=== PATIENT | male | born 1945 | race African-American/Black ===

== ENCOUNTER 2020-12-24 18:08 | Inpatient (IN) | payer OTHER ==
[~2020-12-24] VITALS: Ht 180.3 cm; Wt 83.5 kg
--- NOTE | ~2020-12-24 | EMS ---
[address] [address] EMS Patient Care Report Name: JOSEPHINE CANDELARIA Room #: 443-P ADM IN M.R.#: [id number] Admission: 12/25/20 Attend Phys: Varsha Pedroza MD Discharge: Date of : 41 Report #: [id number] THIS REPORT FOR: //name// Report Transmitted: 12/26/2020 14:28 EMS Care Summary [place], [place]/[facility] Incident [phone] @ 12/24/2020 17:34 Incident Location [id number] [place] [address] Patient JOSEPHINE CANDELARIA Male, 75 Years 1945 Patient Address [id number] [place] [address] Patient History Stroke/CVA, Patient Allergies No known allergies, Patient Medications None Reported, Chief Complaint ABDOMINAL PAIN Disposition Transported No Lights/[place] Dispatch Reason Abdominal Pain/Problems Transported To [facility] Narrative SCENE: ON ARRIVAL PT FOUND SITTING UPRIGHT ON CHAIR IN FRONT ROOM OF ADDRESS PROVIDED. PT IS AWAKE AND ALERT WITH A GCS OF 15. PT C/O ABDOMINAL PAIN SINCE THIS MORNING. PT AMBULATORY TO EMS STRETCHER. [address] [address] EMS Patient Care Report Name: JOSEPHINE CANDELARIA Room #: 443-P ADM IN M.R.#: [id number] Admission: 12/25/20 Attend Phys: Varsha Pedroza MD Discharge: Date of : 41 Report #: [id number] AMBULANCE: VITALS MONITORED. NO CHANGES. Initial Vitals @18:02P: 60,R: 16,BP: 128/68,Pain: 2/10,GCS: 15,Revised Trauma: 12, @17:58P: 64,R: 18,BP: 138/74,Pain: 4/10,GCS: 15,Revised Trauma: 12, Assessments @17:50MENTAL:No Abnormalities,SKIN:No Abnormalities,HEENT:Head/Face: No Abnormalities,Eyes: No Abnormalities,Neck/Airway: No Abnormalities,LUNG SOUNDS:General: Other,Left Upper: No Abnormalities,Right Upper: No Abnormalities,Left Lower: No Abnormalities,Right Lower: No Abnormalities,ABDOMEN:General: Other,Left Upper: No Abnormalities,Right Upper: No Abnormalities,Left Lower: No Abnormalities,Right Lower: No Abnormalities,PELVIS//GI:No Abnormalities,EXTREMITIES:Left Arm: No Abnormalities,Right Arm: No Abnormalities,Left Leg: No Abnormalities,Right Leg: No Abnormalities,PULSE:NEURO:No Abnormalities,@18:02MENTAL:No Abnormalities,SKIN:No Abnormalities,HEENT:Head/Face: No Abnormalities,Eyes: No Abnormalities,Neck/Airway: No Abnormalities,LUNG SOUNDS:General: Other,Left Upper: No Abnormalities,Right Upper: No Abnormalities,Left Lower: No Abnormalities,Right Lower: No Abnormalities,ABDOMEN:General: Other,Left Upper: No Abnormalities,Right Upper: No Abnormalities,Left Lower: No Abnormalities,Right Lower: No Abnormalities,PELVIS//GI:No Abnormalities,EXTREMITIES:Left Arm: No Abnormalities,Right Arm: No Abnormalities,Left Leg: No Abnormalities,Right Leg: No Abnormalities,PULSE:NEURO:No Abnormalities, Impression Abdominal Pain Procedures @17:49ALS AssessmentResponse: UnchangedSucceeded@17:51StretcherResponse: Unchanged Timeline 17:31,Call Received 17:31,Dispatch Notified 17:34,Dispatched 17:36,En Route 17:46,On Scene 17:49,At Patient 17:49,ALS Assessment,Response: UnchangedSucceeded, 17:51,Stretcher,Response: Unchanged 17:55,Depart Scene 17:58,BP: 138/74 M,PULSE: 64,RR: 18 R,SPO2: Ox,ETCO2: ,BG: ,PAIN: 4,GCS: 15, 18:02,BP: 128/68 M,PULSE: 60,RR: 16 R,SPO2: Ox,ETCO2: ,BG: ,PAIN: 2,GCS: 15, [facility] [address] [place] [address] EMS Patient Care Report Name: JOSEPHINE CANDELARIA Room #: 443-P ADM IN .R.#: [id number] Admission: 12/25/20 Attend Phys: Varsha Pedroza MD Discharge: Date of : 41 Report #: [id number] 18:16,At Destination 18:18,Call Closed Disclaimer v1.1 Copyright 2020 [employer] This EMS Care Summary contains data elements from the applicable legal record (which may be displayed differently). It is designed to provide pertinent information for the following purposes: continuity of care, clinical quality, and state data reporting. The complete legal record is available to ED staff and administrators of the receiving hospital in [facility]'s Patient Tracker. All data is provided "as is."
[2020-12-24 18:10] VITALS: BP 143/66
[2020-12-24 19:12] LABS: ABSOLUTE NEUTROPHILS 3.2 thou/uL (1.4-8.2); BASOPHILS 0.4 % (0.0-2.0); HEMATOCRIT 36.4 % (42.0-52.0); HEMOGLOBIN 12.2 gm/dL (14.0-18.0); LYMPHOCYTES 30.6 % (24.0-44.0); MCH 29.3 pg (26.0-34.0); MCHC 33.6 g/dL (28.0-37.0); MCV 87.2 fL (80.0-100.0); MONOCYTES 9.7 % (1.0-8.0); PLATELET COUNT 179 thou/uL (150-400); POLYS 58.3 % (36.0-66.0); RBC 4.17 mil/uL (4.50-6.00); RDW 14.8 % (10.5-14.5); WBC 5.6 thou/uL (4.0-11.0)
[2020-12-24 19:17] LABS: CALCIUM 9.5 mg/dL (8.5-10.1); CREATININE 1.9 mg/dL (0.7-1.3)
[2020-12-24 19:23] LABS: ALBUMIN 3.8 g/dL (3.4-5.0); TOTAL BILIRUBIN 0.4 mg/dL (0.2-1.0); TOTAL PROTEIN 7.8 g/dL (6.4-8.2)
[2020-12-24 19:48] LABS: URINE BILIRUBIN NEGATIVE (Negative); URINE BLOOD TRACE (Negative); URINE CLARITY CLEAR; URINE COLOR YELLOW; URINE GLUCOSE-RANDOM* NEGATIVE (Negative); URINE KETONES NEGATIVE (Negative); URINE LEUKOCYTES-REFLEX NEGATIVE (Negative); URINE NITRITE-REFLEX NEGATIVE (Negative); URINE PROTEIN (DIPSTICK) NEGATIVE (Negative); URINE SPECIFIC GRAVITY 1.015 (1.005-1.035); URINE UROBILINOGEN 0.2 E.U./dl (0.2-1.0)
[2020-12-25 09:54] LABS: CALCIUM 8.5 mg/dL (8.5-10.1); CREATININE 1.2 mg/dL (0.7-1.3)
--- NOTE | 2020-12-25 12:23 | EKG ---
[place] [address] [facility] [place] [address] ELECTROCARDIOGRAM REPORT Name: JOSEPHINE CANDELARIA Room #: 170-7 ADM IN M.R.#: [id number] Admission: 12/25/20 Attend Phys: Ori Ku MD Discharge: Date of : 41 Report #: [id number] [facility] ED Test Date: 2020-12-24 Test Time: 20:34:14 Pat Name: JOSEPHINE CANDELARIA Department: Room: 170 Gender: M [employer]ck[employer]: [employer]aco : 1945 Requested By: Luis Josue Order Number: [id number] MD: Mg Cain Measurements Intervals [place] Rate: 81 P: 60 RI: 227 QRS: -14 QRSD: 169 T: 99 QT: 441 QTc: 512 Interpretive Statements Sinus rhythm Atrial premature complexes Prolonged RI interval Left atrial enlargement Left bundle branch block No previous ECG available for comparison Electronically Signed On 12-25-2020 12:22:55 CDT by Mg Cain [email or web address] <ELECTRONICALLY SIGNED> By: Mg Cain MD 12/25/20 1222 33 2034 MD WILLY Major
[2020-12-25] MEDS ORDERED: HYDROCHLOROTHIA25 M1 PO (13:23)
[2020-12-25] MEDS ORDERED: TERAZOSIN HCL10 MG PO (13:23)
[2020-12-25] MEDS ORDERED: K-DUR10 MEQ PO (13:23)
[2020-12-25] MEDS ORDERED: BYSTOLIC10 MG PO (13:23)
[2020-12-25] MEDS ORDERED: CARVEDILOL12.5 MG PO (13:24)
[2020-12-25] MEDS ORDERED: NORVASC5 M1 PO (13:24)
[2020-12-25 19:15] VITALS: BP 118/71
[2020-12-25 19:21] VITALS: BP 118/71
[2020-12-25 21:00] VITALS: BP 143/76
--- NOTE | 2020-12-26 02:09 | NUR ---
PT ARRIVED FROM THE ER. A&OX4 SPEECH IMPEDIMENT FROM PRIOR CVA. ADMISSION DONE AND PT ORIENTED TO THE UNIT IV INTACT AND FLUIDS INFUSING. PT UP WITH SBA TO THE BATHROOM. NPO. CLEAR LUNGS SOUNDS. NO FUTHER SIGN OF DISCOMFORT WILL CONT TO MONITOR.
[2020-12-26 05:03] VITALS: BP 124/59
[2020-12-26 05:26] LABS: HEMATOCRIT 38.1 % (42.0-52.0); HEMOGLOBIN 12.8 gm/dL (14.0-18.0); MCH 29.3 pg (26.0-34.0); MCHC 33.5 g/dL (28.0-37.0); MCV 87.5 fL (80.0-100.0); RBC 4.36 mil/uL (4.50-6.00); RDW 14.3 % (10.5-14.5); WBC 5.8 thou/uL (4.0-11.0)
[2020-12-26 05:54] LABS: CALCIUM 9.4 mg/dL (8.5-10.1); CREATININE 1.5 mg/dL (0.7-1.3); POTASSIUM 3.1 mmol/L (3.5-5.1)
[2020-12-26 07:51] VITALS: BP 129/76
--- NOTE | 2020-12-26 11:07 | NUR ---
ASSUMED PT CARE THIS AM. PT A&OX4, ABLE TO MAKE NEEDS KNOWN. PATIENT REPORTING PAIN OF A 3/10, AT GOAL PAIN NUMBER. PATIENT REPORTING NO NUMBNESS OR TINGLING. IV PATENT, FLUIDS INFUSING. PATIENT REMAINS CONTINENT, UP TO BATHROOM WITH STANDBY ASSIST. PATIENT REMAINS NPO. FALL PRECAUTIONS ARE IN PLACE, CALL LIGHT WITHIN REACH.
--- NOTE | 2020-12-26 13:50 | NUR ---
ASSESSMENT: CM REVIEWED CHART AND SPOKE WITH PATIENT AT THE BEDSIDE. PT APPEARS TO BE ALERT AND ORIENTED X4. PT HAS PAST HX OF STROKE. PT WAS ADMITTED DUE TO SIGMOID VOLVULUS. PT IS BEING FOLLOWED BY GI AND PLANS FOR COLONIC DECOMPRESSION TODAY. PT REPORTS LIVING IN AN APT ALONE. PT REPORTS HAVING ABOUT 2 STEPS TO ENTER THE APT. PT REPORTS THAT HE IS NORMALLY INDEPENDENT WITH ADLS AND AMBULATION BUT DOES HAVE A CANE AND WALKER. PT REPORTS HE DOES WELL ON HIS OWN BUT HE HAS A VERY CLOSE FAMILY FRIEND ERNESTINE [phone] WHO HELPS HIM RUN ERRANDS OR DRIVE HIM PLACES IF NEEDED. CM SPOKE WITH ERNESTINE AND SHE CONFIRMED INFORMATION. PT IS VERY INEPENDENT BUT IF HE NEEDS ANYTHING HE KNOWS HE CAN CALL HER. PT ALSO HAS 3 SISTERS ONE IN TOWN AND 2 OUT OF STATE. PT REPORTS HE HAS HAD HH YEARS AGO BUT UNSURE THE AGENCY. PT REPORTS HE WENT TO A SNF BEFORE IN [place]. CM DISCUSSED ROLE. PT STATES HE IS NOT A FAN OR HH AND IS HOPEFUL HE WILL HAVE NO NEEDS AT DISCHARGE. CM WILL CONTINUE TO FOLLOW TO ASSIST NEEDED.
[2020-12-26 19:46] VITALS: BP 137/71
[2020-12-27 04:56] VITALS: BP 163/86
--- NOTE | 2020-12-27 07:41 | NUR ---
ASSUMED CARE OF PT AT 1925 ON 12/26/20. PT IS A&OX3. IS ON ROOM AIR. IS STABLE. DENIES PAIN IN THE ABD AT THIS TIMES. IS UP WITH 1 ASSIST, GB. FALL PRECAUTIONS & HOURLY ROUNDING CONTINUED THIS SHIFT. LABS & VTIALS REVIEWED. PT HAS URINARY FREQUENCY. APPRECIATES GOING INTO THE BATHROOM WITH SOME PRIVACY. PT BECAME EXTREMELY AGITATED WITH OTHER NURSE FOR ASSISTING HIM WITH THE URINAL & NOT LEAVING PT ALONE. THIS NURSE PROVIDED THERAPUETIC COMMUNICATION REGARDING PT SAFETY. PT VOICED UNDERSTANDING, PT RESTATED THAT HE WANTS HIS PRIVACY. PT IS CURRENTLY IN ROOM IN BED. CALL LIGHT WITHIN REACH. FLUIDS INFUSING. WILL CONTINUE TO MONITOR. NEAR NURSE STATION.
[2020-12-27 07:48] LABS: CALCIUM 8.9 mg/dL (8.5-10.1); CREATININE 1.4 mg/dL (0.7-1.3); POTASSIUM 3.4 mmol/L (3.5-5.1)
[2020-12-27 07:55] VITALS: BP 168/93
--- NOTE | 2020-12-27 10:01 | NUR ---
ASSUMED PT CARE THIS AM. PT A&OX4 AND MAKES NEEDS KNOWN. PATIENT HS NO COMPLAINTS OF NUMBNESS, TINGLING, OR PAIN THIS AM. PATIENT UP TO THE RESTROOM WITH ASSIST. PATIENT IS ON ROOM AIR. IV PATENT, MEDICATION INFUSING. FALL PRECAUTIONS ARE IN PLACE, CALL LIGHT WITHIN REACH.
--- NOTE | 2020-12-27 13:33 | NUR ---
ON-GOING ASSESSMENT: CM REVIEWED CHART. PTS DIET IS BEING ADVANCED AND POSSIBLE DISCHARGE LATER TODAY. PT STATES HE SHOULD HAVE NO NEEDS AT DISCHARGE.
--- NOTE | 2020-12-27 14:34 | P ---
[facility] [place] [address] [address] PROCEDURE REPORT Name: JOSEPHINE CANDELARIA Room #: 443-P ADM IN M.R.#: [id number] Admission: 12/25/20 Attend Phys: Varsha Pedroza MD Discharge: Date of : 41 Report #: [id number] THIS REPORT FOR: cc: FAM - Family physician unknown FAM - Family physician unknown Atul Mcbride MD ~ cc: Talha Beal MD, Varsha Pedroza MD DATE OF SERVICE: 12/26/2020 DATE OF PROCEDURE: 12/26/2020 PROCEDURE PERFORMED: Flexible sigmoidoscopy with polypectomies. HISTORY OF PRESENT ILLNESS: The patient is a 75-year-old male who presented to the emergency room yesterday with abdominal pain, primarily left upper and left lower quadrant, started on Saturday, 2 bowel movements that they were firm, noticed a small amount of bright red blood per rectum with wiping after his stools. The CT scan of the abdomen and pelvis on admission showing swirling twisting of the sigmoid colon noted to be within the left lower quadrant as well as swirling of the mesenteric vasculature within the lower abdomen. Findings were nonspecific but concerning for volvulus. He now reports less symptoms. Denies any nausea or vomiting. Last colonoscopy was more than 10 years ago. No family history of colon cancer. Hemoglobin 12.8 and has been stable. DESCRIPTION OF PROCEDURE: The risks and benefits of the procedure were explained to the patient, those risks including but not limited to bleeding, perforation, and the risk of sedation. He understood these risks and gave informed consent. Sedation was given using propofol per anesthesia. Next, a digital rectal exam was initially performed, which was normal. Next, using a standard Olympus colonoscope, the scope was placed in the patient's anus and advanced under direct vision into the transverse colon, at which point large amount of solid stool was noted. The overall prep in the descending, sigmoid, and rectum was fairly good and most areas were well visualized. In the descending colon, a 6 mm polyp was noted. This was removed by snare cautery. Multiple diverticula were noted in the descending and portions of the sigmoid colon. The sigmoid colon was mildly dilated, but no obvious volvulus changes or stricture or narrowing were seen throughout the exam today. In the rectum, a 4 mm sessile polyp was also removed by snare cautery. On retroflexion, small nonbleeding internal hemorrhoids were noted. The scope was then withdrawn and the procedure terminated. The patient tolerated the procedure well. IMPRESSION: 1. Two small colonic polyps. 2. No obvious findings of sigmoid narrowing or volvulus seen on exam today. Mild narrowing on the sigmoid colon was noted. There was no evidence of [facility] [address] [place] [address] PROCEDURE REPORT Name: JOSEPHINE CANDELARIA Room #: 443-P [facility] IN M.R.#: [id number] Admission: 12/25/20 Attend Phys: Varsha Pedroza MD Discharge: Date of : 41 Report #: [id number] bleeding. No evidence of colitis. 3. Small internal hemorrhoids, possible source of recent bright red blood per rectum. No evidence of bleeding today. No evidence of inflammation. RECOMMENDATIONS: 1. Advance diet and observe. 2. The patient needs a full colonoscopy with prep in the near future due to polyps and only visualizing half of the colon today. 3. We will discuss with Dr. Beal regarding possible surgery versus observing at this time. Thank you for allowing me to participate in his care. <ELECTRONICALLY SIGNED> By: Atul Mcbride MD 12/27/20 1434 [id number] [id number] Atul Mcbride MD /nt
[2020-12-27] MEDS ORDERED: NORVASC10 MG PO (15:26)
[2020-12-27] MEDS ORDERED: PEPCID20 MG PO (15:26)
[2020-12-27 15:29] VITALS: BP 137/85; BP 147/83
--- NOTE | 2020-12-27 15:32 | NUR ---
on-going assessment: CM REVIEWED CHART. PT HAS ORDERS TO DISCHARGE HOME TODAY. PT REPORTS HE WILL HAVE A RIDE HOME. PT HAS NO NEEDS AT THE TIME OF DISCHARGE. CASE CLOSED.
[2020-12-27 15:34] VITALS: BP 147/83
--- NOTE | 2020-12-28 16:06 | PATH ---
[facility] [address] [place] [address] PATHOLOGY RPT PROCEDURE Name: JOSEPHINE PATEL Room #: 443-P [facility] IN M.R.#: [id number] Admission: 12/25/20 Date of : 41 Discharge: 12/27/20 Report #: [id number] Path Case #: [id number] [facility] Accession Number: [id number] . 01 Material submitted: . PART A: colon - DESCENDING COLON POLYP. Modifiers: descending PART B: rectum - RECTAL POLYP . 01 Clinical history: . FLEX SIG ABD DISTENTION, SIGMOID VOLVULUS COLON POLYPS . 02 Diagnosis: A. Polyp, descending colon polyp, endoscopic biopsy: - Tubular adenoma. - Negative for high grade dysplasia. - Stalk base/inked margin showing unremarkable mucosa. . B. Polyp, rectal polyp, endoscopic biopsy: - Tubular adenoma. - Negative for high grade dysplasia. . (IUV:mml; 12/28/2020) QLM 12/28/2020 1408 Local . 02 Electronically signed: . Estelle Lima MD, Pathologist NPI- [id number] . 01 Gross description: . A. The specimen is received in formalin, labeled "Josephine Patel, descending colon polyp". Received is a single segment of pale renteria tissue measuring 1.0 cm in maximum dimensions. The surgical margin is inked. The specimen is bisected and submitted entirely in cassette A1. . B. The specimen is received in formalin, labeled "Josephine Patel, rectal polyp". Received is a single segment of pale renteria tissue measuring 0.4 cm in maximum dimensions. The specimen is submitted entirely in cassette B1. ([facility]; 12/27/2020) NRI/NRI 12/27/2020 1023 Local . 02 Pathologist provided ICD-10: D12.4, D12.8 . 02 CPT . 563861, [id number] [place] [address] PATHOLOGY RPT PROCEDURE Name: JOSEPHINE PATEL Room #: 443-P DIS IN M.R.#: [id number] Admission: 12/25/20 Date of : 41 Discharge: 12/27/20 Report #: [id number] Path Case #: [id number] Specimen Comment: A courtesy copy of this report has been sent to [phone], [phone] Specimen Comment: [phone] Specimen Comment: Report sent to / DR KINCAID Performed at: [address] [facility] [address], [place], [place] [id number] MD Otis Wolf MD Phone: [phone] Performed at: [address] [id number] MD Estelle Lima MD Phone: [phone]
== END 2020-12-27 16:55 | disposition home or self-care (01) | DRG 388 ==
LOC: ER 18:08 → 4S 12-25 00:41 → EROBS 12-25 00:41 → 4S 12-25 19:30
PROVIDERS: Emergency Medicine; Nurse Practitioner Family; ADMIT Hospitalist; ATTEND Hospitalist
PROC: 0DBP8ZZ Excision of Rectum, Via Natural or Artificial Opening Endoscopic (ICD-10-PCS; principal; 2020-12-26)
PROC: 0DBM8ZZ Excision of Descending Colon, Via Natural or Artificial Opening Endoscopic (ICD-10-PCS; principal; 2020-12-26)
PROC: 0D7N8ZZ Dilation of Sigmoid Colon, Via Natural or Artificial Opening Endoscopic (ICD-10-PCS; principal; 2020-12-26)
DX: K56.2 Volvulus (principal); N17.0 Acute kidney failure with tubular necrosis; K63.5 Polyp of colon; I10 Essential (primary) hypertension; E87.6 Hypokalemia; R63.4 Abnormal weight loss; E16.2 Hypoglycemia, unspecified; K62.1 Rectal polyp; K64.8 Other hemorrhoids; Z60.2 Problems related to living alone; Z20.822 Contact with and (suspected) exposure to COVID-19; Z86.73 Personal history of transient ischemic attack (TIA), and cerebral infarction without residual deficits; Z88.8 Allergy status to other drugs, medicaments and biological substances; Z91.013 Allergy to seafood; Z87.891 Personal history of nicotine dependence; Z68.25 Body mass index [BMI] 25.0-25.9, adult
CPT/HCPCS: 10195; 62110; 62900; 70005